=== PATIENT | female | born 1970 | race Hispanic/Latino ===

== ENCOUNTER 2023-01-07 00:02 | Emergency (ER) | payer OTHER ==
[~2023-01-07] VITALS: Ht 157.5 cm; Wt 150.1 kg
[2023-01-07] MEDS ORDERED: IPRATROPIUM/ALBUTEROL SULFATE 3 ML SOLUTION IH ONE (00:30)
[2023-01-07] MEDS ORDERED: SOLU-MEDROL 125MG VIAL IVP ONE (00:30)
[2023-01-07] MEDS ORDERED: BENZONATATE 100 MG CAPSULE PO ONE (00:30)
[2023-01-07 00:35] LABS: BASOPHILS # (AUTO) 0.04 K/uL (0.00-0.20); BASOPHILS % (AUTO) 0.4 % (0.0-5.0); EOSINOPHILS # (AUTO) 0.18 K/uL (0.00-0.70); EOSINOPHILS % (AUTO) 1.8 % (0.0-8.0); HEMATOCRIT 40.7 % (36-48); IMMATURE GRANULOCYTE ABSOLUTE 0.05 K/uL (0-1); LYMPHOCYTES # (AUTO) 1.9 K/uL (1.0-4.8); LYMPHOCYTES % (AUTO) 18.9 % (21.0-51.0); MEAN CORPUSCULAR HEMOGLOBIN 28.3 pg (27.0-33.0); MEAN CORPUSCULAR HGB CONC 32.2 g/dL (32.0-36.0); MEAN CORPUSCULAR VOLUME 87.9 fL (79-99); MONOCYTES # (AUTO) 0.5 K/uL (0.1-1.0); MONOCYTES % (AUTO) 5.4 % (3.0-13.0); NEUTROPHILS # (AUTO) 7.2 K/uL (1.8-7.7); PLATELET COUNT (AUTO) 230 K/uL (130-400); RED BLOOD CELL COUNT(AUTO) 4.63 MIL/uL (4.00-5.50); RED CELL DISTRIBUTION WIDTH 13.9 % (11.0-15.5); WHITE BLOOD COUNT (AUTO) 9.8 K/uL (4.8-10.8)
[2023-01-07 00:41] LABS: ADD UA MICROSCOPIC YES; APPEARANCE,URINE CLEAR (CLEAR); BILIRUBIN,URINE NEGATIVE (NEGATIVE); COLOR,URINE YELLOW (YELLOW); GLUCOSE, URINE (UA) NEGATIVE (NEGATIVE); KETONES,URINE NEGATIVE (NEGATIVE); LEUKOCYTE ESTERASE ,URINE 75 Leu/uL (NEGATIVE); NITRATE,URINE NEGATIVE (NEGATIVE); OCCULT BLOOD,URINE NEGATIVE (NEGATIVE); PH,URINE 6.5 (5.0-8.0); PROTEIN,URINE 100 mg/dL (NEGATIVE); UROBILINOGEN,URINE 0.2 mg/dL (0.2-1.0)
[2023-01-07 00:43] LABS: CREATININE 0.7 mg/dL (0.5-1.5); MUCUS,URINE RARE LPF (None Seen); POTASSIUM 3.2 mmol/L (3.5-5.1); SQUAMOUS EPITHELIAL CELL,UR FEW /HPF (0-2)
[2023-01-07 00:48] LABS: ALBUMIN 3.4 g/dL (3.5-5.0); BILIRUBIN,TOTAL 0.3 mg/dL (0.2-1.0); SARS-CoV-2, RNA, NAAT NEGATIVE SARS CoV-2 (NEGATIVE); TOTAL PROTEIN, SERUM 7.5 g/dL (6.0-8.3)
[2023-01-07 00:52] LABS: INFLUENZA TYPE A Negative For Type A (NEGATIVE); INFLUENZA TYPE B Negative For Type B (NEGATIVE)
[2023-01-07 00:54] VITALS: PULSE 76; RESP 16
[2023-01-07 00:59] LABS: B-TYPE NATRIURETIC PEPTIDE 12 pg/mL (0-100)
[2023-01-07 02:40] VITALS: BP 151/89; PULSE 77; RESP 20; O2SAT 93
[2023-01-07] MEDS ORDERED: ALBUHFA IH (02:46)
[2023-01-07] MEDS ORDERED: CEPH500B PO (02:46)
[2023-01-07] MEDS ORDERED: AUD IH (02:46)
[2023-01-07] MEDS ORDERED: CEFTRIAXONE 2GM VIAL IVPB ONE (03:00)
[2023-01-07] MEDS ORDERED: POTASSIUM BICARB/CIT AC 25 MEQ TABLET.EFF PO ONE (03:00)
== END 2023-01-07 03:13 | disposition home or self-care (01) ==
LOC: EDH 00:02
DX: N39.0 Urinary tract infection, site not specified (principal); J45.909 Unspecified asthma, uncomplicated; E87.6 Hypokalemia; R06.03 Acute respiratory distress; E66.01 Morbid (severe) obesity due to excess calories; I10 Essential (primary) hypertension; E11.9 Type 2 diabetes mellitus without complications; E78.00 Pure hypercholesterolemia, unspecified; Z68.44 Body mass index [BMI] 60.0-69.9, adult; Z20.822 Contact with and (suspected) exposure to COVID-19
CPT/HCPCS: 99285; 96365; 71045; 87635; 96375; 84484; 80053; 83880; 85025; 87088; 87804 ×2; 81001; 36415; 93005; 94640; C9803; J2930; J0696